=== PATIENT | male | born 1995 | race Asian ===

== ENCOUNTER 2017-10-14 10:42 | Emergency (ER) | payer OTHER ==
--- NOTE | 2017-10-14 10:54 | EDPHY ---
H & P Stated Complaint: Abd pain since last evening;vom x 1 Time Seen by Provider: 10/14/17 10:54 - Personal History Current Tetanus Diphtheria and Acellular Pertussis (TDAP): Yes - Medical/Surgical History Other PMH: depression/bipolar. ADHD - Social History Smoking Status: Current some day smoker Constitutional: Initial Vital Signs Temperature (C) 36.7 C 10/14/17 10:46 Heart Rate 83 10/14/17 10:46 Respiratory Rate 18 10/14/17 10:46 Blood Pressure 120/78 10/14/17 10:46 O2 Sat (%) 17 L 10/14/17 10:46 O2 Delivery Mode Room Air Allergies/Adverse Reactions: No Known Allergies Allergy (Unverified 10/14/17 10:48) Home Medications: Medication Instructions Recorded Lisdexamfetamine Dimesylate 50 mg PO 10/14/17 [Vyvanse] buPROPion SR [Wellbutrin 150mg SR 150 mg PO 10/14/17 (*)] lamOTRIGine [Lamotrigine] 200 mg PO 10/14/17 Medical Decision Making - Diagnostics Imaging: Discussed imaging studies w/ wool hat forming machine tender Radiologist, I viewed and interpreted images myself ED Course/Re-evaluation: CHIEF COMPLAINT: Abdominal pain HISTORY OF PRESENT ILLNESS: The patient is a 21 y/o male arriving with his father complaining of sudden, acute onset abdominal pain onset around 21:00 last night, about 14 hours ago. He describes the pain as "intense" and sharp in quality with associated bowel urgency. Pain is vaguely located around his RLQ and is not worse with palpation. He vomited a few times "I think because of the pain." He's had a few small bowel movements that are softer than normal. The pain improved for 1-2 hours this morning and he was able to sleep for a short time. Upon waking he had another bowel movement and noticed some bright red blood while straining. He's never had similar symptoms previously. No history of of kidney stones or abdominal surgeries. REVIEW OF SYSTEMS: A comprehensive 10 system review of systems is otherwise negative aside from elements mentioned in the history of present illness and medical decision making. PHYSICAL EXAM: HR, BP, O2 Sat, RR. Temp noted General Appearance: Alert, well hydrated, appropriate, and non-toxic appearing. Head: Atraumatic without scalp tenderness or obvious injury Eyes: Pupils equal, round, reactive to light and accommodation, EOMI, no trauma , no injection. Nose: Atraumatic, no rhinorrhea, clear. Throat: There is no erythema or exudates, no lesions, normal tonsils, mucus membranes moist. Neck: Supple, nontender, no lymphadenopathy. Respiratory: No retractions, no distress, no wheezes, and no accessory muscle use. Lungs are clear to auscultation bilaterally. Cardiovascular: Regular rate and rhythm, no murmurs, rubs, or gallops. Good capillary refill all extremities. Gastrointestinal: Abdomen is soft, nontender, non-distended, no masses, no rebound, no guarding, no peritoneal signs. Musculoskeletal: Normal active ROM of all extremities, atraumatic. Neurological: Alert, appropriate, and interactive. Nonfocal. Skin: No rashes, good turgor, no nodules on palpation. Past medical history: depression; bipolar disorder - Lamictal, Wellbutrin; ADHD - Vyvanse Past surgical history: no abdominal surgeries Family history: Noncontributory Social history: Father at bedside. Smoker. DIAGNOSTICS/PROCEDURES/CRITICAL CARE TIME: Abdominal CT w/out contrast: negative DIFFERENTIAL DIAGNOSIS: The differential diagnosis for the patient's abdominal pain included but was not limited to appendicitis, cholecystitis, hernias, testicular torsion, gastritis, and urinary tract infection. MEDICAL DECISION MAKING: This is a well-appearing 21 y/o male who presents with a 14-hour history of intermittent RLQ pain, loose bowel movements, and vomiting. Exam is unremarkable. Doubt appendicitis, kidney stone possible. Plan for IV, labs, UA, abdominal CT, and symptomatic management as needed. Labs unremarkable. CT normal. UA normal. Reassessed patient and discussed findings. He is feeling improved. Abdomen is benign. He will be discharged home with recommendation to follow up with his PCP for unimproved symptoms. Return precautions discussed. - Data Points Laboratory Results: Laboratory Results 10/14/17 11:10 10/14/17 11:10 10/14/17 10/14/17 10/14/17 11:40 11:10 11:10 WBC 10.69 10^3/uL H 10^3/uL (3.80-9.50) RBC 5.40 10^6/uL 10^6/uL (4.40-6.38) Hgb 16.4 g/dL g/dL (13.7-17.5) Hct 46.4 % % (40.0-51.0) MCV 85.9 fL fL (81.5-99.8) MCH 30.4 pg pg (27.9-34.1) MCHC 35.3 g/dL g/dL (32.4-36.7) RDW 12.1 % % (11.5-15.2) Plt Count 254 10^3/uL 10^3/uL (150-400) MPV 8.7 fL fL (8.7-11.7) Neut % (Auto) 80.1 % H % (39.3-74.2) Lymph % (Auto) 14.0 % L % (15.0-45.0) [place] % (Auto) 5.1 % % (4.5-13.0) Eos % (Auto) 0.2 % L % (0.6-7.6) Baso % (Auto) 0.3 % % (0.3-1.7) Nucleat RBC Rel Count 0.0 % % (0.0-0.2) Absolute Neuts (auto) 8.56 10^3/uL H 10^3/uL (1.70-6.50) Absolute Lymphs (auto) 1.50 10^3/uL 10^3/uL (1.00-3.00) Absolute Monos (auto) 0.55 10^3/uL 10^3/uL (0.30-0.80) Absolute Eos (auto) 0.02 10^3/uL L 10^3/uL (0.03-0.40) Absolute Basos (auto) 0.03 10^3/uL 10^3/uL (0.02-0.10) Absolute Nucleated RBC 0.00 10^3/uL 10^3/uL (0-0.01) Immature Gran % 0.3 % % (0.0-1.1) Immature Gran # 0.03 10^3/uL 10^3/uL (0.00-0.10) Sodium 138 mEq/L mEq/L (135-145) Potassium 4.1 mEq/L mEq/L (3.3-5.0) Chloride 101 mEq/L mEq/L (97-110) Carbon Dioxide 26 mEq/l mEq/l (22-31) Anion Gap 11 mEq/L mEq/L (8-16) BUN 10 mg/dL mg/dL (7-23) Creatinine 1.0 mg/dL mg/dL (0.7-1.3) Estimated GFR > 60 Glucose 97 mg/dL mg/dL (70-100) Calcium 10.2 mg/dL mg/dL (8.5-10.4) Urine Color PALE YELLOW Urine Appearance CLEAR Urine pH 7.0 (5.0-7.5) Ur Specific [place] 1.002 (1.002-1.030) Urine Protein NEGATIVE (NEGATIVE) Urine Ketones TRACE H (NEGATIVE) Urine Blood NEGATIVE (NEGATIVE) Urine Nitrate NEGATIVE (NEGATIVE) Urine Bilirubin NEGATIVE (NEGATIVE) Urine Urobilinogen NEGATIVE EU EU (0.2-1.0) Ur Leukocyte Esterase NEGATIVE (NEGATIVE) Urine RBC 1-3 /hpf /hpf (0-3) Urine WBC 1-3 /hpf /hpf (0-3) Ur Epithelial Cells NONE SEEN /lpf /lpf (NONE-1+) Urine Mucus TRACE /lpf /lpf (NONE-1+) Urine Glucose NEGATIVE (NEGATIVE) Departure - Departure Disposition: Home, Routine, Self-Care Clinical Impression: Abdominal pain Qualifiers: Abdominal location: right lower quadrant Qualified Code(s): R10.31 - Right lower quadrant pain Condition: Good Instructions: Acute Abdominal Pain (ED) Additional Instructions: Increase fluid intake. Follow up with your primary care provider in 1-2 days for unimproved symptoms. Return for worsening of condition. Referrals: Lenin Polanco MD [[facility] [place] - As per Instructions Report Scribed for: Lester Bonilla Report Scribed by: Dayami Joyner Date of Report: 10/14/17 Time of Report: 11:04
[2017-10-14 11:21] LABS: PLATELET COUNT 254 10^3/uL (150-400)
[2017-10-14] MEDS ORDERED: ONDANSETRON 4MG PREPACK#2 BTL TAKEHOME ONE (11:58)
[2017-10-14 12:12] VITALS: BP 118/76
== END 2017-10-14 12:12 | disposition home or self-care (01) ==
DX: R10.31 Right lower quadrant pain (principal); F17.200 Nicotine dependence, unspecified, uncomplicated